=== PATIENT | female | born 1960 | race Caucasian/White ===

== ENCOUNTER 2016-12-28 10:27 | Emergency (ER) | payer OTHER ==
[2016-12-28 10:55] VITALS: BP 125/50
--- NOTE | 2016-12-28 11:24 | UC ---
General HPI - HPI Summary HPI Summary: THREE DAYS, PERHAPS MORE, OF NAUSEA AND VOMITING ON 12/26/16 CHANGED FROM OXYCODONE TO HYDROCODONE BY ORTHOPEDIC DOSCTOR. ON 12/10/16 CHANGED FROM CITALOPRAM TO BUPROPION. NHAN BELIEVES THAT ANTIDEPRESSENT IS CAUSING SYMPTOMS CALLED PRIMARY CARE AND TAPER WAS INITIATED TODAY. - History of Current Complaint Chief Complaint: UCGI Stated Complaint: VOMITING, NAUSEA Time Seen by Provider: 12/28/16 10:28 Hx Obtained From: Patient, Family/Head Orthopedic Team Physician Hx Last Menstrual Period: age 38 yo Onset/Duration: Gradual Onset, Lasting Days, Still Present Onset Severity: Mild Current Severity: Mild Associated Signs & Symptoms: Positive: Nausea, Vomiting. Negative: Abdominal Pain, Confusion, Cough, Fever, Trauma, Wheezing, Weakness - Allergy/Home Medications Allergies/Adverse Reactions: Allergies Allergy/AdvReac Type Severity Reaction Status Date / Time Aspirin AdvReac Bleeding Verified 12/28/16 10:43 Ibuprofen AdvReac Bleeding Verified 12/28/16 10:43 Home Medications: Home Medications Bupropion HCl [Bupropion HCl Xl] 150 mg PO DAILY 12/28/16 [History Confirmed ] Hydrocodone-Acetaminophen [Hydrocodone/Acetaminophen 10-325 mg] 1 tab PO Q6HR [History Confirmed 12/28/16] PMH/Surg Hx/FS Hx/Imm Hx Previously Healthy: Yes - Surgical History Surgical History: Yes Surgery Procedure, Year, and Place: D&C- 2011. hysterectomy- 2011. R shoulder x 2 - Family History Known Family History: Positive: Cardiac Disease - Social History Occupation: Disabled Lives: With Family Alcohol Use: None Substance Use Type: None Smoking Status (MU): Never Smoked Tobacco Review of Systems Constitutional: Negative Skin: Negative Eyes: Negative ENT: Negative Respiratory: Negative Cardiovascular: Negative Gastrointestinal: Vomiting, Nausea Genitourinary: Negative Motor: Negative Neurovascular: Negative Musculoskeletal: Negative Neurological: Negative Psychological: Negative All Other Systems Reviewed And Are Negative: Yes Physical Exam Triage Information Reviewed: Yes Appearance: Well-Appearing, No Pain Distress Vital Signs: Initial Vital Signs Temp 97.3 F 12/28/16 10:30 Pulse 100 12/28/16 10:30 Resp 18 12/28/16 10:30 BP 125/50 12/28/16 10:30 Pulse Ox 96 12/28/16 10:30 Vital Signs Reviewed: Yes Eye Exam: Normal ENT Exam: Normal ENT: Positive: Normal ENT inspection Dental Exam: Normal Neck exam: Normal Neck: Positive: Supple, Nontender, No Lymphadenopathy Respiratory Exam: Normal Respiratory: Positive: Chest non-tender, Lungs clear, Normal breath sounds, No respiratory distress Cardiovascular Exam: Normal Cardiovascular: Positive: RRR, No Murmur Abdominal Exam: Normal Abdomen Description: Positive: Nontender, No Organomegaly, Soft Musculoskeletal Exam: Normal Neurological Exam: Normal Psychological Exam: Normal Skin Exam: Normal Course/Dx - Differential Dx - Multi-Symptom Differential Diagnoses: Metabolic Abnormality Provider Diagnoses: ACUTE NAUSEA & VOMITING; ADVERSE MEDICATION REACTION Discharge - Discharge Plan Condition: Stable Disposition: HOME Prescriptions: Ondansetron ODT TAB* [Zofran 4 MG Odt TAB*] 8 mg PO Q8H PRN #12 tab.odt PRN Reason: Vomiting Patient Education Materials: Acute Nausea and Vomiting (ED) Referrals: Marni Garcia NP [Primary Care Provider] - Additional Instructions: YOU ARE ALREADY IN CONTACT WITH YOUR PRIMARY CARE DOCTOR REGARDING CHANGES TO YOUR ANTIDEPRESSANT MEDICATION, PLEASE CONTINUE TO INFORM THEM AND TO FOLLOW THEIR CLINICAL GUIDANCE. YOU HAVE ALSO AGREED TO CALL YOUR ORTHOPEDIC SURGEON AND TO DISCUSS THIS NEW NAUSEA AND VOMITING AND TO FOLLOW THEIR CLINICAL GUIDANCE.
== END 2016-12-28 11:17 | disposition home or self-care (01) ==
LOC: UCCORT 10:27
DX: R11.2 Nausea with vomiting, unspecified (principal); T50.905A Adverse effect of unspecified drugs, medicaments and biological substances, initial encounter; Y92.9 Unspecified place or not applicable; Z90.710 Acquired absence of both cervix and uterus; Z88.6 Allergy status to analgesic agent
CPT/HCPCS: 99212; G0463

== ENCOUNTER 2017-01-01 11:15 | Emergency (ER) | payer OTHER ==
[2017-01-01 11:52] VITALS: BP 118/70
== END 2017-01-01 11:53 | disposition left against medical advice (07) ==
LOC: UCCORT 11:15
DX: M79.621 Pain in right upper arm (principal); Z53.21 Procedure and treatment not carried out due to patient leaving prior to being seen by health care provider

== ENCOUNTER 2017-12-03 16:02 | Emergency (ER) | payer OTHER ==
[2017-12-03 16:16] VITALS: BP 136/53
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
[2017-12-03] MEDS ORDERED: Levalbuterol 0.63MG/3ML NEB* UNIT OF USE INH ONE (16:56)
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
== END 2017-12-03 17:34 | disposition left against medical advice (07) ==
LOC: UCCORT 16:02
DX: R07.9 Chest pain, unspecified (principal); R06.02 Shortness of breath; E11.9 Type 2 diabetes mellitus without complications; I10 Essential (primary) hypertension; E78.5 Hyperlipidemia, unspecified; J45.909 Unspecified asthma, uncomplicated; Z77.22 Contact with and (suspected) exposure to environmental tobacco smoke (acute) (chronic); Z88.8 Allergy status to other drugs, medicaments and biological substances; Z88.6 Allergy status to analgesic agent; Z79.899 Other long term (current) drug therapy
CPT/HCPCS: 71046; 93005; 99213; G0463

== ENCOUNTER 2019-03-18 07:02 | Emergency (ER) | payer MEDICARE ==
[2019-03-18 07:33] VITALS: BP 131/73
--- NOTE | 2019-03-18 07:47 | UC ---
Respiratory Complaint HPI - HPI Summary HPI Summary: The patient is a 58 yo female with the onset of cough x 3 weeks no fever/chills + right lower extr pain x weeks (+) sore throat x days (+) CP and mild dyspnea x 2 days - History of Current Complaint Chief Complaint: UCRespiratory Stated Complaint: COLD SYMP Time Seen by Provider: 03/18/19 07:34 Hx Obtained From: Patient Hx Last Menstrual Period: age 38 yo Onset/Duration: Gradual Onset, Lasting Weeks Timing: Constant Severity Initially: Mild Severity Currently: Moderate Pain Intensity: 7 Pain Scale Used: 0-10 Numeric Character: Cough: Productive Aggravating Factors: Nothing Alleviating Factors: Nothing Associated Signs And Symptoms: Positive: Dyspnea - mild, Calf Pain - R, Calf Swelling - R. Negative: Fever, Chills, Pleuritic Chest Pain, Wheezing, Hemoptysis, Dizziness, Edema, URI, Nasal Congestion, Hoarseness, Sinus Discomfort - Allergies/Home Medications Allergies/Adverse Reactions: Allergies Allergy/AdvReac Type Severity Reaction Status Date / Time aspirin Allergy Bleeding Verified 03/18/19 07:19 ibuprofen Allergy Bleeding Verified 03/18/19 07:19 lisinopril Allergy Unknown Verified 03/18/19 07:19 Reaction Details metaxalone Allergy Rash Verified 03/18/19 07:19 nifedipine Allergy Unknown Verified 03/18/19 07:19 Reaction Details amoxicillin, all cillins Allergy leg Uncoded 03/18/19 07:19 swelling, facial redness Home Medications: Home Medications D-Methorphan/PE/Acetaminophen [Theraflu Expressmax Sever 20-10-650 mg/30Ml] 1 liq PO PRN 03/18/19 [History] PMH/Surg Hx/FS Hx/Imm Hx Previously Healthy: Yes Endocrine History: Diabetes, Dyslipidemia Cardiovascular History: Hypertension Cancer History: Breast Cancer - Surgical History Surgical History: Yes Surgery Procedure, Year, and Place: D&C- 2011. hysterectomy- 2011. MULTIPLE SHOULDER SURGERIES. ENDOSCOPY - Family History Known Family History: Positive: Cardiac Disease - Social History Alcohol Use: None Substance Use Type: None Smoking Status (MU): Never Smoked Tobacco Have You Smoked in the Last Year: No Household Exposure Type: Cigarettes Review of Systems All Other Systems Reviewed And Are Negative: Yes Constitutional: Positive: Negative Skin: Positive: Negative Eyes: Positive: Negative ENT: Positive: Sore Throat Respiratory: Positive: Shortness Of Breath, Cough Cardiovascular: Positive: Chest Pain Gastrointestinal: Positive: Negative Genitourinary: Positive: Negative Motor: Positive: Negative Neurovascular: Positive: Negative Musculoskeletal: Positive: Edema - right calf Neurological: Positive: Negative Psychological: Positive: Negative Physical Exam Triage Information Reviewed: Yes Appearance: Well-Appearing, No Pain Distress, Well-Nourished Vital Signs: Initial Vital Signs Temp 98.3 F 03/18/19 07:24 Pulse 76 03/18/19 07:24 Resp 20 03/18/19 07:24 BP 131/73 03/18/19 07:24 Pulse Ox 96 03/18/19 07:24 Vital Signs Reviewed: Yes Eyes: Positive: Conjunctiva Clear ENT: Positive: Hearing grossly normal, Pharyngeal erythema, Uvula midline. Negative: Nasal congestion, Nasal drainage, Tonsillar swelling, Tonsillar exudate, Trismus, Muffled voice, Hoarse voice, Sinus tenderness Neck: Positive: Supple, Nontender, No Lymphadenopathy Respiratory: Positive: Lungs clear, Normal breath sounds, No respiratory distress, No accessory muscle use Cardiovascular: Positive: RRR, No Murmur Abdomen Description: Positive: Nontender Bowel Sounds: Positive: Present Musculoskeletal: Positive: Edema @ - righ calf Neurological: Positive: Alert Psychological Exam: Normal Skin Exam: Normal Diagnostics - Laboratory Lab Results: strep (-) - Radiology No standard instances Radiology Interpretation Completed By: Radiologist Summary of Radiographic Findings: cxr: NAD U/S right leg: no DVT - EKG Cardiac Rate: NL Cardiac Rhythm: Sinus: Normal Ectopy: None ST Segment: Normal Respiratory Course/Dx - Differential Dx/Diagnosis Provider Diagnosis: Acute bronchitis, Leg edema, right Discharge ED - Sign-Out/Discharge Documenting (check all that apply): Post-Discharge Follow Up All imaging exams completed and their final reports reviewed: Yes - Discharge Plan Condition: Stable Prescriptions: DOXYcycline CAP(*) [DOXYcycline 100MG CAP(*)] 100 mg PO BID #14 cap Patient Education Materials: Acute Bronchitis (ED) Referrals: Marni Garcia NP [Primary Care Provider] - 4 Days (recheck in 4-5 days) - Billing Disposition and Condition Condition: STABLE
== END 2019-03-18 09:07 | disposition home or self-care (01) ==
LOC: UCCORT 07:02
DX: J20.9 Acute bronchitis, unspecified (principal); R60.0 Localized edema; E11.9 Type 2 diabetes mellitus without complications; E78.5 Hyperlipidemia, unspecified; I10 Essential (primary) hypertension; Z85.3 Personal history of malignant neoplasm of breast; Z88.0 Allergy status to penicillin; Z88.8 Allergy status to other drugs, medicaments and biological substances; Z88.6 Allergy status to analgesic agent
CPT/HCPCS: 71046; 87651; 93005; 99212; G0463

== ENCOUNTER 2019-03-28 09:43 | Emergency (ER) | payer MEDICARE ==
--- NOTE | 2019-03-28 11:29 | UC ---
Cardiac HPI - HPI Summary HPI Summary: Pt presetns with c/o cough, chest pain fatigue X 4 days. Pt was seen here on for similar c/o and dx with bronchitis an dgiven doxycycline for 10 days. Pt finishe ddoxy and stated she began with worsening cough over the last 4 days with cp. - History of Current Complaint Chief Complaint: UCChestPain Stated Complaint: SOB, COUGH, CHEST PAINS Time Seen by Provider: 03/28/19 10:25 Hx Obtained From: Patient Hx Last Menstrual Period: age 38 yo Onset/Duration: Gradual Onset, Lasting Days, Worse Since - onset Timing: Constant Initial Severity: Mild Current Severity: Moderate Pain Intensity: 8 Chest Pain Location: Mid Sternal Character: Dull/Aching, Tightness Aggravating Factor(s): Exertion Alleviating Factor(s): Nothing Associated Signs & Symptoms: Positive: Chest Pain, SOB, Cough - Risk Factors Pulmonary Embolism Risk Factors: Malignancy - has hx of breast ca takes tamoxifen Cardiac Risk Factors: Hypertension, Diabetes, CAD Atrial Fibrillation: Mitral Valve Disease TAD Risk Factors: Negative AMI/ACS Risk Factors: Diabetes, Hypertension - Allergy/Home Medications Allergies/Adverse Reactions: Allergies Allergy/AdvReac Type Severity Reaction Status Date / Time aspirin Allergy Bleeding Verified 03/28/19 09:48 ibuprofen Allergy Bleeding Verified 03/28/19 09:48 lisinopril Allergy Unknown Verified 03/28/19 09:48 Reaction Details metaxalone Allergy Rash Verified 03/28/19 09:48 nifedipine Allergy Unknown Verified 03/28/19 09:48 Reaction Details amoxicillin, all cillins Allergy leg Uncoded 03/28/19 09:48 swelling, facial redness PMH/Surg Hx/FS Hx/Imm Hx Previously Healthy: No Endocrine History: Diabetes Cardiovascular History: Cardiac Disease Cancer History: Breast Cancer - Surgical History Surgical History: Yes Surgery Procedure, Year, and Place: D&C- 2011. hysterectomy- 2012. MULTIPLE SHOULDER SURGERIES. ENDOSCOPY - Family History Known Family History: Positive: Cardiac Disease - Social History Occupation: Retired Lives: With Family Alcohol Use: None Substance Use Type: None Smoking Status (MU): Never Smoked Tobacco Have You Smoked in the Last Year: No Household Exposure Type: Cigarettes - Immunization History Vaccination Up to Date: Yes Review of Systems All Other Systems Reviewed And Are Negative: Yes Constitutional: Positive: Chills, Fatigue Skin: Positive: Negative Eyes: Positive: Negative ENT: Positive: Negative Respiratory: Positive: Shortness Of Breath, Cough Cardiovascular: Positive: Chest Pain Gastrointestinal: Positive: Negative Genitourinary: Positive: Negative Motor: Positive: Negative Neurovascular: Positive: Negative Musculoskeletal: Positive: Negative Neurological: Positive: Negative Psychological: Positive: Negative Is Patient Immunocompromised?: No Physical Exam Triage Information Reviewed: Yes Appearance: Ill-Appearing Vital Signs: Initial Vital Signs Temp 98.8 F 03/28/19 09:51 Pulse 74 03/28/19 09:51 Resp 20 03/28/19 09:51 BP 154/74 03/28/19 09:51 Pulse Ox 96 03/28/19 09:51 Vital Signs Reviewed: Yes Eye Exam: Normal ENT: Positive: Nasal congestion Dental Exam: Normal Neck exam: Normal Respiratory: Positive: Decreased breath sounds, Wheezing Cardiovascular Exam: Normal Cardiovascular: Positive: RRR Musculoskeletal Exam: Normal Neurological Exam: Normal Psychological Exam: Normal Skin Exam: Normal Diagnostics - Radiology No standard instances Radiology Interpretation Completed By: Radiologist - Electronics Recycler: Russel Leiva ([id number]) Gang Punch Operator: GEORGE (GEORGE) Report Date: 2018 11:39:00 Report Status: Final ======= Start of Report Content Patient Name: SHALA SARKAR Medical Record#: [id number] Ordering Physician: Clotilde Lim CHECK INSPECTOR Acct.#: [id number] : 1960 Age: 58 Sex: F Location: [facility] Exam Date: 03/28/19 1046 ADM Status: REG ER Order Information: CHEST PA LAT 2 VWS Accession Number: [id number] CPT: 68777 INDICATION: Cough COMPARISON: Most recent comparison chest x-rays dated March 18, 2019 TECHNIQUE: PA and lateral views of the chest were obtained. FINDINGS: The heart and mediastinum are normal in size and contour. The lungs are grossly clear. There is no evidence of large pleural effusion. There is a mild degree of peribronchial cuffing more evident on the lateral view radiograph. Visualized bones are normal for the patient's age. There is no radiographic evidence of free air beneath the diaphragm IMPRESSION: THE MILD DEGREE OF PERIBRONCHIAL CUFFING COULD BE SEEN IN THE SETTING OF BRONCHITIS AND/ OR VIRAL PNEUMONIA. _ <Electronically signed by Russel Leiva MD in OV> 03/28/19 1136 Dictated By: Russel Leiva MD Dictated Date/Time: 03/28/19 1131 Transcribed Date/Time: 113 Copy to: CC:Marni Garcia NP; Clotilde Lim NP; Kimberlyn Low MD Imaging - [facility] Imaging - [facility] [address] [place] [address] ph [phone]) ph [phone]) ph ) End of Report Content - Assessment/Plan Course Of Treatment: I discussed the xray impression and my recommendation to go to ER if symptoms do not improve or worsen. Pt verbalized understanding and agreed to plan of care. - Differential Diagnoses - Chest Pain Differential Diagnosis/HQI/PQRI: Acute TX, ACS, Pulmonary Embolism - Differential Diagnoses - Hypertension Differential Diagnosis/HQI PQRI: Myocardial Infarction - Differential Diagnoses - Palpitations Differential Diagnosis/HQI/PQRI: Pulmonary Embolism - Clinical Impression Provider Diagnosis: Pneumonia, viral Discharge ED - Sign-Out/Discharge Documenting (check all that apply): Patient Departure All imaging exams completed and their final reports reviewed: No Studies - Discharge Plan Condition: Stable Disposition: HOME-RECOMMEND TO ED Patient Education Materials: Chest Pain (ED) Referrals: Marni Garcia NP [Primary Care Provider] - As Soon As Possible Additional Instructions: It is recommended that you go to the closest emergency room for further evaluation and testing. - Billing Disposition and Condition Condition: STABLE Disposition: Home-Recommend to ED
[2019-03-28 11:33] VITALS: BP 158/79
== END 2019-03-28 12:07 | disposition home health service (06) ==
LOC: UCCORT 09:43
DX: J12.9 Viral pneumonia, unspecified (principal); R91.8 Other nonspecific abnormal finding of lung field; R09.81 Nasal congestion; E11.9 Type 2 diabetes mellitus without complications; Z88.6 Allergy status to analgesic agent; Z88.0 Allergy status to penicillin; Z88.8 Allergy status to other drugs, medicaments and biological substances
CPT/HCPCS: 71046; 93005; 99212; G0463